=== PATIENT | female | born 1940 | race Caucasian/White ===

== ENCOUNTER 2017-02-13 09:37 | Observation (INO) | payer OTHER, MEDICAID ==
[2017-02-13] MEDS ORDERED: NS 1,000 ML IV ONE ×2 (09:43→10:43)
--- NOTE | 2017-02-13 09:53 | EDPHY ---
H & P Stated Complaint: I am afraid I might be septic Time Seen by Provider: 02/13/17 09:48 HPI/ROS: HPI: 76-year-old female presents to emergency department with chief concern "I am afraid I might be septic". She called [address] [facility] today because she was afraid she may developed sepsis from UTI. In rehab at [facility] and is being treated currently for UTI. States she has not responded to the amoxicillin and had pyuria on straight cath yesterday. Was treated with a g of IM Rocephin. Denies fever, chills, myalgias, URI symptoms, shortness of breath , chest pain, abdominal pain, nausea, vomiting. Has no history of sepsis. Has a history of chronic UTIs. ROS:10 point review of systems is negative other than as stated in HPI Source: Patient, long term records Exam Limitations: No limitations - Medical/Surgical History Other PMH: Multiple myeloma not having achieved remission, chronic kidney disease stage 3, acute respiratory failure with hypoxia, cerebral infarction, chronic pain syndrome, hypothyroidism, hypertension, weakness, heart disease, back pain, dysuria, cognitive communication deficit - Family History Significant Family History: No pertinent family hx - Social History Smoking Status: Never smoked Alcohol Use: Rarely Drug Use: None Additional Social History: Daughter lives in [place] Daughter currently in [place] for checkup for breast cancer Patient from [place] - Physical Exam Exam: Vital signs stable, reviewed by me General: Awake, alert, calm, cooperative. No acute distress. Head: Normalocephalic. Atraumatic. EENT: PERRLA. EOMI. No pallor or injection. Anicteric. No nystagmus. No injection. Neck: Supple, nontender. No lymphadenopathy. Full range of motion. No meningismus. Respiratory: Breathing unlabored. Breath sounds equal bilaterally and clear to auscultation. No adventitious sounds. CV: Chest nontender, atraumatic. Heart rate regular. No murmur, distal pulses 2+ bilaterally. Brisk cap refill all extremities. GI: Abdomen soft, nontender. Bowel sounds normoactive and positive x4 quadrants. : No suprapubic tenderness. No CVA or flank tenderness. Neuro: Alert. Oriented x 2. Speech clear. Nonfocal cranial nerves throughout. Sensation intact all extremities. Strength 4+ right upper extremity , 5+ left upper extremity, bilateral lower extremities. Skin: Skin warm, dry, intact. Skin turgor normal. Extremities: Full range of motion in all 4 extremities. Constitutional: Initial Vital Signs Temperature (C) 36.8 C 02/13/17 09:38 Heart Rate 90 02/13/17 09:38 Respiratory Rate 14 02/13/17 09:38 Blood Pressure 135/81 H 02/13/17 09:38 O2 Sat (%) 96 02/13/17 09:38 O2 Delivery Mode Nasal Cannula O2 (L/minute) 2 Allergies/Adverse Reactions: codeine Allergy (Verified 02/13/17 12:09) metoclopramide Allergy (Verified 02/13/17 12:09) Sulfa (Sulfonamide Antibiotics) Allergy (Verified 02/13/17 10:37) Home Medications: Medication Instructions Recorded Acetaminophen [Tylenol ES 500 mg 1,000 mg PO TID 02/13/17 (*)] Allopurinol [Allopurinol 300 MG 300 mg PO DAILY 02/13/17 (RX)] Anastrozole [Arimidex 1 mg (*)] 1 mg PO DAILY 02/13/17 Aspirin [Aspirin 81mg (*)] 81 mg PO DAILY 02/13/17 Atorvastatin Calcium [Lipitor 40 40 mg PO HS 02/13/17 mg (*)] Carvedilol [Coreg (*)] 3.125 mg PO BIDMEAL 02/13/17 Clopidogrel Bisulfate [Plavix (*)] 75 mg PO DAILY 02/13/17 Cyanocobalamin [Vitamin B12 (*)] 1,000 mcg PO DAILY 02/13/17 Herbals/Supplements -Info Only 1 each PO DAILY 02/13/17 Isosorbide Mononitrate [Imdur 30 30 mg PO DAILY 02/13/17 mg (*)] Levothyroxine [Synthroid 75 mcg 75 mcg PO DAILY06 02/13/17 (*)] Lidocaine 5% [Lidoderm 5% Patch 1 each TD DAILY 02/13/17 (*)] Lisinopril [Zestril 10 mg (*)] 10 mg PO DAILY 02/13/17 Melatonin [Melatonin 3 MG (*)] 3 mg PO HS PRN 02/13/17 Multivitamins [Multivitamin (*)] 1 each PO DAILY 02/13/17 [place]-3 Fatty Acids [Fish Oil 1000 1,000 mg PO DAILY 02/13/17 mg (*)] Tamsulosin HCl [Flomax 0.4 MG (*)] 0.8 mg PO DAILY 02/13/17 Venlafaxine Xr [Effexor Xr 75MG 75 mg PO DAILY 02/13/17 (*)] amLODIPine BESYLATE [Norvasc 10 mg 10 mg PO DAILY 02/13/17 (*)] clonazePAM [Klonopin (*)] 0.5 mg PO DAILY PRN 02/13/17 tiZANidine HCL [Zanaflex 2MG (*)] 2 mg PO Q8HRS PRN 02/13/17 traMADol [Ultram 50 mg (*)] 50 mg PO Q8HRS PRN 02/13/17 Medical Decision Making ED Course/Re-evaluation: 76-year-old female brought into ED by EMS having called [address] [facility] with chief concern "I am afraid of becoming septic". According to staff at [facility], treated for 1 UTI, resolved, and developed a 2nd UTI over the past 2 days. Patient reports pyuria yesterday on straight cath. Was given a g of Rocephin. In ED today white count within normal. Vitals are stable. BUN 27, creatinine 1.4. Lactic acid 2.3. Patient given 2 L normal saline. Repeating a 2nd lactic acid. Patient will be admitted to hospitalist service. Report given to Ericka Neal NP. Differential Diagnosis: Differential diagnosis includes but is not limited to UTI, sepsis, abscess - Data Points Laboratory Results: Laboratory Results 02/13/17 10:09 02/13/17 10:09 02/13/17 02/13/17 02/13/17 10:52 10:25 10:10 WBC RBC Hgb Hct MCV MCH MCHC RDW Plt Count MPV Neut % (Auto) Lymph % (Auto) [place] % (Auto) Eos % (Auto) Baso % (Auto) Nucleat RBC Rel Count Absolute Neuts (auto) Absolute Lymphs (auto) Absolute Monos (auto) Absolute Eos (auto) Absolute Basos (auto) Absolute Nucleated RBC Immature Gran % Immature Gran # PT 13.0 SEC SEC (12.0-15.0) INR 0.99 (0.83-1.16) APTT 25.8 SEC SEC (23.0-38.0) VBG Lactic Acid 1.8 mmol/L D mmol/L (0.7-2.1) Sodium Potassium Chloride Carbon Dioxide Anion Gap BUN Creatinine Estimated GFR Glucose Calcium Total Bilirubin Conjugated Bilirubin Unconjugated Bilirubin AST ALT Alkaline Phosphatase Total Protein Albumin Urine Color YELLOW Urine Appearance TURBID Urine pH 5.0 (5.0-7.5) Ur Specific [place] 1.012 (1.002-1.030) Urine Protein 2+ H (NEGATIVE) Urine Ketones NEGATIVE (NEGATIVE) Urine Blood 1+ H (NEGATIVE) Urine Nitrate NEGATIVE (NEGATIVE) Urine Bilirubin NEGATIVE (NEGATIVE) Urine Urobilinogen NEGATIVE EU EU (0.2-1.0) Ur Leukocyte Esterase 2+ H (NEGATIVE) Urine RBC NONE SEEN /hpf /hpf (0-3) Urine WBC 50-182 /hpf H /hpf (0-3) Ur Epithelial Cells TRACE /lpf /lpf (NONE-1+) Urine Glucose NEGATIVE (NEGATIVE) 02/13/17 02/13/17 02/13/17 10:09 10:09 10:09 WBC 9.28 10^3/uL 10^3/uL (3.80-9.50) RBC 3.87 10^6/uL L 10^6/uL (4.18-5.33) Hgb 11.4 g/dL L g/dL (12.6-16.3) Hct 35.8 % L % (38.0-47.0) MCV 92.5 fL fL (81.5-99.8) MCH 29.5 pg pg (27.9-34.1) MCHC 31.8 g/dL L g/dL (32.4-36.7) RDW 17.5 % H % (11.5-15.2) Plt Count 275 10^3/uL 10^3/uL (150-400) MPV 9.9 fL fL (8.7-11.7) Neut % (Auto) 80.0 % H % (39.3-74.2) Lymph % (Auto) 11.6 % L % (15.0-45.0) [place] % (Auto) 6.7 % % (4.5-13.0) Eos % (Auto) 0.9 % % (0.6-7.6) Baso % (Auto) 0.2 % L % (0.3-1.7) Nucleat RBC Rel Count 0.0 % % (0.0-0.2) Absolute Neuts (auto) 7.42 10^3/uL H 10^3/uL (1.70-6.50) Absolute Lymphs (auto) 1.08 10^3/uL 10^3/uL (1.00-3.00) Absolute Monos (auto) 0.62 10^3/uL 10^3/uL (0.30-0.80) Absolute Eos (auto) 0.08 10^3/uL 10^3/uL (0.03-0.40) Absolute Basos (auto) 0.02 10^3/uL 10^3/uL (0.02-0.10) Absolute Nucleated RBC 0.00 10^3/uL 10^3/uL (0-0.01) Immature Gran % 0.6 % % (0.0-1.1) Immature Gran # 0.06 10^3/uL 10^3/uL (0.00-0.10) PT INR APTT VBG Lactic Acid Sodium 140 mEq/L mEq/L (134-144) Potassium 4.7 mEq/L mEq/L (3.5-5.2) Chloride 105 mEq/L mEq/L (97-110) Carbon Dioxide 24 mEq/l mEq/l (22-31) Anion Gap 11 mEq/L mEq/L (8-16) BUN 27 mg/dL H mg/dL (7-23) Creatinine 1.4 mg/dL H mg/dL (0.6-1.0) Estimated GFR 36 Glucose 140 mg/dL H mg/dL (70-100) Calcium 10.3 mg/dL mg/dL (8.5-10.4) Total Bilirubin 0.6 mg/dL mg/dL (0.1-1.4) Conjugated Bilirubin 0.4 mg/dL mg/dL (0.0-0.5) Unconjugated Bilirubin 0.2 mg/dL mg/dL (0.0-1.1) AST 31 IU/L IU/L (14-46) ALT 39 IU/L IU/L (9-52) Alkaline Phosphatase 143 IU/L H IU/L (38-126) Total Protein 6.6 g/dL g/dL (6.3-8.2) Albumin 3.7 g/dL g/dL (3.5-5.0) Urine Color Urine Appearance Urine pH Ur Specific [place] Urine Protein Urine Ketones Urine Blood Urine Nitrate Urine Bilirubin Urine Urobilinogen Ur Leukocyte Esterase Urine RBC Urine WBC Ur Epithelial Cells Urine Glucose 02/13/17 10:09 WBC RBC Hgb Hct MCV MCH MCHC RDW Plt Count MPV Neut % (Auto) Lymph % (Auto) [place] % (Auto) Eos % (Auto) Baso % (Auto) Nucleat RBC Rel Count Absolute Neuts (auto) Absolute Lymphs (auto) Absolute Monos (auto) Absolute Eos (auto) Absolute Basos (auto) Absolute Nucleated RBC Immature Gran % Immature Gran # PT INR APTT VBG Lactic Acid 2.3 mmol/L H mmol/L (0.7-2.1) Sodium Potassium Chloride Carbon Dioxide Anion Gap BUN Creatinine Estimated GFR Glucose Calcium Total Bilirubin Conjugated Bilirubin Unconjugated Bilirubin AST ALT Alkaline Phosphatase Total Protein Albumin Urine Color Urine Appearance Urine pH Ur Specific [place] Urine Protein Urine Ketones Urine Blood Urine Nitrate Urine Bilirubin Urine Urobilinogen Ur Leukocyte Esterase Urine RBC Urine WBC Ur Epithelial Cells Urine Glucose Medications Given: Discontinued Medications Sodium Chloride (Ns) 1,000 mls @ 0 mls/hr IV ONCE ONE PRN Reason: Wide Open Stop: 02/13/17 09:44 Last Admin: 02/13/17 10:39 Dose: 1,000 mls Ceftriaxone Sodium/Dextrose (Rocephin 1 Gm (Premix)) 50 mls @ 100 mls/hr IV EDNOW ONE PRN Reason: Protocol Stop: 02/13/17 10:51 Last Admin: 02/13/17 10:52 Dose: 50 mls Sodium Chloride (Ns) 1,000 mls @ 0 mls/hr IV ONCE ONE PRN Reason: Wide Open Stop: 02/13/17 10:44 Last Admin: 02/13/17 10:53 Dose: 1,000 mls Departure - Departure Disposition: [facility] Acute Clinical Impression: UTI (urinary tract infection)
[2017-02-13 10:23] LABS: % IMMATURE GRANULYOCYTES 0.6 % (0.0-1.1); ABSOLUTE IMMATURE GRANULOCYTES 0.06 10^3/uL (0.00-0.10); ADD DIFF? NO; ADD MORPH? NO; ADD SCAN? NO; ATYPICAL LYMPHOCYTE FLAG 0 (0-99); FRAGMENT RBC FLAG 0 (0-99); HEMATOCRIT 35.8 % (38.0-47.0); HEMOGLOBIN 11.4 g/dL (12.6-16.3); LEFT SHIFT FLG 10 (0-99); LIPEMIA HEMOLYSIS FLAG 80 (0-99); MEAN CELL HEMOGLOBIN 29.5 pg (27.9-34.1); MEAN CELL HEMOGLOBIN CONCENTR. 31.8 g/dL (32.4-36.7); MEAN CELL VOLUME 92.5 fL (81.5-99.8); MEAN PLATELET VOLUME 9.9 fL (8.7-11.7); PLATELET CLUMPS FLAG 0 (0-99); PLATELET COUNT 275 10^3/uL (150-400); RED BLOOD CELL COUNT 3.87 10^6/uL (4.18-5.33); RED CELL DISTRIBUTION WIDTH 17.5 % (11.5-15.2)
[2017-02-13 10:39] LABS: ANION GAP 11 mEq/L (8-16); CALCIUM 10.3 mg/dL (8.5-10.4); CARBON DIOXIDE 24 mEq/l (22-31); CHLORIDE 105 mEq/L (97-110); CREATININE 1.4 mg/dL (0.6-1.0); GLOMERULAR FILTRATION RATE 36; GLUCOSE 140 mg/dL (70-100); POTASSIUM 4.7 mEq/L (3.5-5.2); SODIUM 140 mEq/L (134-144)
[2017-02-13 10:40] LABS: COLOR YELLOW; LEUKOCYTE ESTERASE,URINE 2+ (NEGATIVE); NITRITE,URINE NEGATIVE (NEGATIVE)
[2017-02-13 10:48] LABS: INR 0.99 (0.83-1.16)
[2017-02-13 10:49] LABS: APTT 25.8 SEC (23.0-38.0)
[2017-02-13 10:55] LABS: ALANINE AMINOTRANSFERASE 39 IU/L (9-52); ALBUMIN 3.7 g/dL (3.5-5.0); ALKALINE PHOSPHATASE 143 IU/L (38-126); ASPARTATE AMINOTRANSFERASE 31 IU/L (14-46); BILIRUBIN,TOTAL 0.6 mg/dL (0.1-1.4); BILIRUBIN-CONJUGATED 0.4 mg/dL (0.0-0.5); BILIRUBIN-UNCONJUGATED 0.2 mg/dL (0.0-1.1); TOTAL PROTEIN 6.6 g/dL (6.3-8.2)
[2017-02-13 10:55] LABS: WBC,URINE 50-182 /hpf (0-3)
[2017-02-13 11:07] LABS: RBC,URINE NONE SEEN /hpf (0-3)
[2017-02-13] MEDS ORDERED: tiZANidine HCL 2 MG TAB PO PRN (13:56)
[2017-02-13] MEDS ORDERED: clonazePAM 0.5 MG TAB PO PRN (13:56)
[2017-02-13] MEDS ORDERED: MELATONIN 3 MG TAB PO PRN (13:56)
[2017-02-13] MEDS ORDERED: ONDANSETRON 4 MG/2 ML VIAL IVP PRN (15:06)
[2017-02-13] MEDS: traMADol 50 MG TAB PO PRN (16:15)
--- NOTE | 2017-02-13 16:15 | GHP ---
[f rep st] HISTORY AND PHYSICAL DATE OF ADMISSION: 02/13/2017 CHIEF COMPLAINT: Dysuria. HISTORY: The patient is a 76-year-old female who is currently at [facility], having been moved from [place] by her daughter. She has a history of recurrent UTIs. A few days ago she developed burni ng when she urinates and a fever up to 101. Urinalysis at [facility] was positive for UTI, and she was given IM Rocephin. Urine culture has come back, and per patient report, organism was sensitive to Rocephin. She is no longer febrile, and her urine symptoms have improved. Patient comes to the ER; however, because she called 911 from her room at [facility] concerned that she was developing se psis. She is very concerned regarding her weakened immune system, status post stem cell transplant for multiple myeloma. She is a retired nurse. She was previously on Macrobid for UTI prevention; h owever, with her chronic creatinine elevation it was recently discontinued. She no longer has the b urning with urination and fever, and she is actually improving since Rocephin was started. PAST MEDICAL HISTORY: 1. Multiple myeloma, status post stem cell transplant and whole-body radiation, currently in [facility]. She has not reestablished Oncology care here in [place]. 2. Chronic kidney disease. She reports her last creatinine was 1.8. 3. History of stroke with right-sided weakness. 4. Chronic low back pain. 5. Osteoporosis with compression fracture, status post kyphoplasty. 6. Spinal stenosis. 7. Hypertension. 8. Elevated uric acid. 9. Breast cancer. MEDICATIONS: Please see computer record for full detailed list. ALLERGIES: Sulfa. SOCIAL HISTORY: No smoking. Occasional alcohol. She is a retired nurse. She has been in [place] from [place] since when she was brought here by her daughter due to increasing care need s in [place]. Her daughter is currently in [place] getting treatment for her own breast cancer. The patient is currently residing at [facility]. REVIEW OF SYSTEMS: Complete review of systems obtained. Review of systems is negative on constitut ional, HEENT, GI, pulmonary, cardiovascular, , hematology, skin, muscular, endocrine, psych except for positives as in HPI. FAMILY HISTORY: Reviewed. Noncontributory to presenting complaint. PHYSICAL EXAMINATION: GENERAL: Well-developed, well-nourished female, in no acute distress. VITAL SIGNS: Temperature is 96.5, pulse 69, blood pressure 121/59, saturating 97% on 2 L. EYE: Normal conjunctiva. Pupils react to light. ENT: Normal ears and nose. Hearing intact. Normal teeth. O ropharynx moist. NECK: Trachea midline. No thyromegaly. CHEST: Normal. RESPIRATORY: Lungs are clear to auscultation bilaterally. CARDIOVASCULAR: Regular rhythm. No murmur. No lower extremit y edema. ABDOMEN: Soft, nontender. No hepatosplenomegaly. SKIN: Warm, dry, and intact. No rash . MUSCULOSKELETAL: No cyanosis or clubbing. Strength 5/5 in the upper and lower extremities. CARLOS ROLOGIC: Cranial nerves intact. Normal sensation to light touch. PSYCH: Alert and oriented x3. Normal mood and affect. Normal judgment, insight and normal memory. LABORATORY DATA: White count 9.28, hematocrit 35.8, platelets 275. Sodium 140, potassium 4.7, chlo ride 105, bicarb 24, BUN 27, creatinine 1.4, glucose 140. LFTs are negative. INR is 0.9. Lactic a landon is 2.3. ASSESSMENT/PLAN: 1. Urinary tract infection. We will contact [facility] and obtain culture which has resulted from 2 days ago. Per patient report, organism was sensitive to Rocephin, which she has been on intramusc ularly at [facility]. It does appear she is improving. Will continue Rocephin. Will check a renal ultrasound. 2. Lactate elevation. Otherwise she does not have any signs and symptoms of sepsis at this time, a lthough it sounds like she may have had them 2 days ago. She may have a little residual hyponatremi a. She will be hydrated with IV fluid and follow lactate. 3. Multiple myeloma, status post stem cell treatment. Currently in remission. She wishes to estab [facility] Oncology care which can be done as an outpatient unless something more acute arises. We will request old records from [place] for further details. 4. Breast cancer. Continue Arimidex. 5. Chronic kidney disease. She is currently better than baseline. CODE STATUS: Full. ADMISSION STATUS: Will admit to observation as she is already improving and may be able to return t o [facility] in the morning. DVT PROPHYLAXIS: She is high risk. Will prescribe subcu Lovenox. /[id number]/MODL
[2017-02-13] MEDS: CARVEDILOL 3.125 MG TAB PO SCH (17:51)
[2017-02-13] MEDS: ACETAMINOPHEN 500 MG TAB PO SCH ×2 (17:51→20:46)
[2017-02-13] MEDS ORDERED: ATORVASTATIN CALCIUM 40 MG TAB PO SCH (21:00)
[2017-02-13] MEDS ORDERED: PATCH REMOVAL 1 EA PATCH TD SCH (21:00)
[2017-02-14] MEDS: traMADol 50 MG TAB PO PRN ×2 (04:20→14:57)
[2017-02-14 04:28] LABS: % IMMATURE GRANULYOCYTES 0.6 % (0.0-1.1); ABSOLUTE IMMATURE GRANULOCYTES 0.05 10^3/uL (0.00-0.10); ADD DIFF? NO; ADD MORPH? NO; ADD SCAN? NO; ATYPICAL LYMPHOCYTE FLAG 0 (0-99); FRAGMENT RBC FLAG 0 (0-99); HEMATOCRIT 29.1 % (38.0-47.0); HEMOGLOBIN 9.4 g/dL (12.6-16.3); LEFT SHIFT FLG 10 (0-99); LIPEMIA HEMOLYSIS FLAG 80 (0-99); MEAN CELL HEMOGLOBIN 29.6 pg (27.9-34.1); MEAN CELL HEMOGLOBIN CONCENTR. 32.3 g/dL (32.4-36.7); MEAN CELL VOLUME 91.5 fL (81.5-99.8); MEAN PLATELET VOLUME 9.7 fL (8.7-11.7); PLATELET CLUMPS FLAG 10 (0-99); PLATELET COUNT 221 10^3/uL (150-400); RED BLOOD CELL COUNT 3.18 10^6/uL (4.18-5.33); RED CELL DISTRIBUTION WIDTH 17.6 % (11.5-15.2)
[2017-02-14 04:40] LABS: ANION GAP 3 mEq/L (8-16); CALCIUM 9.2 mg/dL (8.5-10.4); CARBON DIOXIDE 23 mEq/l (22-31); CHLORIDE 111 mEq/L (97-110); CREATININE 1.2 mg/dL (0.6-1.0); GLOMERULAR FILTRATION RATE 44; GLUCOSE 90 mg/dL (70-100); POTASSIUM 4.5 mEq/L (3.5-5.2); SODIUM 137 mEq/L (134-144)
[2017-02-14] MEDS ORDERED: LEVOTHYROXINE 75 MCG TAB PO SCH (06:00)
[2017-02-14] MEDS: CARVEDILOL 3.125 MG TAB PO SCH (08:16)
[2017-02-14] MEDS: ACETAMINOPHEN 500 MG TAB PO SCH ×2 (08:17→14:57)
[2017-02-14] MEDS ORDERED: LISINOPRIL 10 MG TAB PO SCH (09:00)
[2017-02-14] MEDS ORDERED: ANASTROZOLE 1 MG TAB PO SCH (09:00)
[2017-02-14] MEDS ORDERED: LIDOCAINE 5% 1 EA PATCH TD SCH (09:00)
[2017-02-14] MEDS ORDERED: TAMSULOSIN HCL 0.4 MG CAP PO SCH (09:00)
[2017-02-14] MEDS ORDERED: ENOXAPARIN 40 MG/0.4 ML SYR SC SCH (09:00)
[2017-02-14] MEDS ORDERED: ASPIRIN 81 MG CHEWABLE TAB PO SCH (09:00)
[2017-02-14] MEDS ORDERED: CYANO/VITAMIN B12 1000 MCG TAB PO SCH (09:00)
[2017-02-14] MEDS ORDERED: ALLOPURINOL 300 MG TAB PO SCH (09:00)
[2017-02-14] MEDS ORDERED: VENLAFAXINE XR 75 MG CAP PO SCH (09:00)
[2017-02-14] MEDS ORDERED: ISOSORBIDE MONONITRATE 30 MG TAB.SR PO SCH (09:00)
[2017-02-14] MEDS ORDERED: CLOPIDOGREL BISULFATE 75 MG TAB PO SCH (09:00)
--- NOTE | 2017-02-14 11:03 | PDIAF ---
- Diagnosis Diagnosis: UTI Code Status: Full Code - Medication Management Discharge Medications: Medications to Continue on Transfer Acetaminophen [Tylenol ES 500 mg (*)] 1,000 mg PO TID 02/13/17 [Last Taken Unknown] Allopurinol [Allopurinol 300 MG (RX)] 300 mg PO DAILY 02/13/17 [Last Taken Unknown] Anastrozole [Arimidex 1 mg (*)] 1 mg PO DAILY 02/13/17 [Last Taken Unknown] Aspirin [Aspirin 81mg (*)] 81 mg PO DAILY 02/13/17 [Last Taken Unknown] Atorvastatin Calcium [Lipitor 40 mg (*)] 40 mg PO HS 02/13/17 [Last Taken Unknown] Carvedilol [Coreg (*)] 3.125 mg PO BIDMEAL 02/13/17 [Last Taken Unknown] Clopidogrel Bisulfate [Plavix (*)] 75 mg PO DAILY 02/13/17 [Last Taken Unknown] Cyanocobalamin [Vitamin B12 (*)] 1,000 mcg PO DAILY 02/13/17 [Last Taken Unknown ] Herbals/Supplements -Info Only 1 each PO DAILY 02/13/17 [Last Taken Unknown] Isosorbide Mononitrate [Imdur 30 mg (*)] 30 mg PO DAILY 02/13/17 [Last Taken Unknown] Levothyroxine [Synthroid 75 mcg (*)] 75 mcg PO DAILY06 02/13/17 [Last Taken Unknown] Lidocaine 5% [Lidoderm 5% Patch (*)] 1 each TD DAILY 02/13/17 [Last Taken Unknown] Lisinopril [Zestril 10 mg (*)] 10 mg PO DAILY 02/13/17 [Last Taken Unknown] Melatonin [Melatonin 3 MG (*)] 3 mg PO HS PRN 02/13/17 [Last Taken Unknown] Multivitamins [Multivitamin (*)] 1 each PO DAILY 02/13/17 [Last Taken Unknown] [place]-3 Fatty Acids [Fish Oil 1000 mg (*)] 1,000 mg PO DAILY 02/13/17 [Last Taken Unknown] Tamsulosin HCl [Flomax 0.4 MG (*)] 0.8 mg PO DAILY 02/13/17 [Last Taken Unknown] Venlafaxine Xr [Effexor Xr 75MG (*)] 75 mg PO DAILY 02/13/17 [Last Taken Unknown ] amLODIPine BESYLATE [Norvasc 10 mg (*)] 10 mg PO DAILY 02/13/17 [Last Taken Unknown] clonazePAM [Klonopin (*)] 0.5 mg PO DAILY PRN 02/13/17 [Last Taken Unknown] tiZANidine HCL [Zanaflex 2MG (*)] 2 mg PO Q8HRS PRN 02/13/17 [Last Taken Unknown ] traMADol [Ultram 50 mg (*)] 50 mg PO Q8HRS PRN 02/13/17 [Last Taken Unknown] Ciprofloxacin [Cipro] 500 mg PO BID #14 tab 02/14/17 [Last Taken Unknown] Carrot Grader Inspector Antibiotic Stop Date: 02/20/17 Discharge Medications: Refer to the Discharge Home Medication list for PRN reason. - Orders Services needed: Physical Therapy, Occupational Therapy Diet Recommendation: no restrictions on diet - Follow Up Care Current Providers and Referrals: Patient,NotPresent [Primary Care Provider] - As per Instructions Shemar Grace MD [Medical Doctor] -
--- NOTE | 2017-02-14 12:37 | GCON ---
[f rep st] CONSULTATION INPATIENT ONCOLOGY CONSULTATION DATE OF CONSULTATION: 02/14/2017 REFERRING PHYSICIAN: Jolly Yang MD REASON FOR CONSULTATION: Establish care for history of multiple myeloma. HISTORY OF PRESENT ILLNESS: The patient is a 76-year-old woman with a longstanding history of multiple myeloma which is currently in remission. She recently moved to [place] to live with her daughter. She is actually currently at [facility] and was admitted with a urinary tract infection. Cultures showed a pansensitive Klebsiella, and she will likely be discharged today on oral ciprofloxacin. Her myeloma history dates back to 1990. Her care to date has been given by Dr. Hipolito Lindsey. She was treated with tandem autologous stem cell transplant in 1991 and 1992, which included total body irradiation conditioning. She also had thalidomide post transplant which caused some peripheral neuropathy. She says that she has been in remission since then and has not been on any therapy. She does not know if she ever received a bisphosphonate. She did have some bony lesions and has had multiple kyphoplasties. She has chronic low back pain and is not able to stand or sit for long periods of time. She is seeing a pain specialist in [place]. This is probably her most significant medical problem right now, and is what resulted in her moving to [place] because her was no longer able to care for her. PAST MEDICAL HISTORY: 1. Myeloma, as described above. 2. Vertebral body lesions from myeloma, status kyphoplasty. 3. Coronary artery disease, status post stent x3. 4. Cholecystectomy. 5. Hysterectomy. 6. Hypertension. CURRENT MEDICATIONS: Include allopurinol, Arimidex, aspirin, Lipitor, Coreg, ceftriaxone, Plavix, Lovenox, Imdur, Synthroid, Zestril, Zofran, Flomax, Effexor , and vitamin B12. ALLERGIES: Sulfa drugs and codeine. FAMILY HISTORY: Noncontributory. SOCIAL HISTORY: She is nonsmoker and does not drink alcohol. Currently living at [facility] but is likely to move into her daughter's house in [place] when her daughter returns from a trip out of town. REVIEW OF SYSTEMS: Aside from pertinent positives in the HPI, a 14-point review of systems was negative. EXAMINATION: VITAL SIGNS: Temperature is 36.6, blood pressure 144/70, heart rate 69, oxygen saturation 94% on 2 L. GENERAL: A [id number] woman though in no acute distress. HEENT: Sclerae anicteric. Oropharynx is clear. NECK: Supple without lymphadenopathy. LUNGS: Clear to auscultation bilaterally. CARDIAC: Regular rate and rhythm. No murmurs, gallops, or rubs. ABDOMEN: Normal bowel sounds. Nontender. EXTREMITIES: Without edema. 2+ pulses. SKIN: She had a large ecchymosis and hematoma on her left shoulder after a fall. No other stigmata of bleeding. NEUROLOGIC: Alert and oriented x3. LABORATORY DATA: Sodium 137, potassium 4.5, chloride 111, bicarb 23, BUN 25, creatinine 1.2. Liver function tests normal. White cells 8.34, hemoglobin 9.4, platelets 221. IMPRESSION: 1. Multiple myeloma, thought to be in remission, with no recent therapy. 2. Chronic low back pain, likely due to bony disease from myeloma. 3. Urinary tract infection. 4. Normocytic anemia. I ordered some myeloma labs today, including an SPEP and free light chains. I will check her immunoglobulin levels as a measure of immune function, which may still be impaired even though this is many years after stem cell transplant. I will also check iron stores and B12 level to determine if there may be other causes for her anemia. I would like to see her in my clinic several weeks after discharge so that we can continue monitoring her myeloma. I do not believe any treatment would be indicated right now unless there is evidence that it is progressive. She has not had any labs checked in almost a year, so we will have to see what those show. I will forward those results to Dr. Lindsey's clinic at [facility]. I thank you for this consultation. It was a pleasure to meet this patient, and I appreciate the opportunity to be involved in her care. I look forward to seeing her regularly in my outpatient clinic. /[id number]/MODL MTDD
[2017-02-14 12:52] LABS: % SATURATION 21 % (20-55); TOTAL IRON BINDING CAPACITY 232 ug/dL (260-490)
[2017-02-14 13:31] VITALS: BP 115/69; PULSE 76; RESP 16; TEMP 98.4; O2SAT 90
[2017-02-14 14:47] LABS: FERRITIN - BCH 39.9 ng/mL (6.2-264.0)
--- NOTE | 2017-02-14 17:52 | GDS ---
[f rep st] DISCHARGE SUMMARY DISCHARGE DIAGNOSES: 1. Klebsiella urinary tract infection. 2. Dehydration with lactic acid elevation. 3. Multiple myeloma, status post previous stem-cell treatment and whole-body radiation. 4. Breast cancer. 5. Chronic kidney disease. 6. Coronary artery disease, status post stents. 7. Pathologic compression fracture, status post kyphoplasty now with chronic low back pain. 8. Peripheral neuropathy secondary to chemotherapy. HISTORY: The patient is a 76-year-old female, recently relocating here from [place], who is in [facility] until her daughter returns to the [facility] so she may live with her. She has a history of multiple myeloma, which is currently in remission, although has required extensive erlin tment in the past. She is very concerned regarding her ongoing immune function. She developed a UT I at [facility], was given IM Rocephin. Culture from [facility] was Klebsiella which was sensitive to the Rocephin. It is also sensitive to oral ciprofloxacin. She did not have any signs of sepsis on presentation. She rapidly improved. She can discharge back to [facility] with ciprofloxacin to complete her course of therapy. She has not yet established care in [place] for her multiple myeloma. She requested Oncology consu ltation and Dr. Grace saw her here in the hospital and initiated lab surveillance and will see he r as an outpatient. DISCHARGE MEDICATIONS: Please see computer record for full detailed list. New medications: Ciprof loxacin 500 mg p.o. b.i.d. for 7 days. ADDITIONAL DISCHARGE INSTRUCTIONS: Follow up with Dr. Grace for local oncology followup. Multip le laboratory studies were ordered here by Dr. Grace prior to discharge, and he will follow these up as an outpatient. Patient was seen and examined by me on day of discharge. /[id number]/MODL
[2017-02-15 13:40] LABS: IG KAPPA FREE LIGHT CHAIN 4.16 mg/dL; IG LAMBDA FREE LIGHT CHAIN 3.08 mg/dL; KAPPA/LAMBDA RATIO 1.35
== END 2017-02-14 15:17 ==
LOC: F3E 12:00
PROVIDERS: ADMIT Internal Medicine Pulmonary Disease; ATTEND Internal Medicine
DX: N39.0 Urinary tract infection, site not specified (principal); B96.1 Klebsiella pneumoniae [K. pneumoniae] as the cause of diseases classified elsewhere; C90.01 Multiple myeloma in remission; D64.9 Anemia, unspecified; I25.10 Atherosclerotic heart disease of native coronary artery without angina pectoris; G62.0 Drug-induced polyneuropathy; I10 Essential (primary) hypertension; E86.0 Dehydration; N18.9 Chronic kidney disease, unspecified; Z95.0 Presence of cardiac pacemaker
CPT/HCPCS: 76770; 97161; G0378; G8978; G8979; J0696; J1650; 82607-90; 82784-90; 86334-90; 96365

== ENCOUNTER 2017-04-24 14:57 | Observation (INO) | payer OTHER, MEDICARE, MEDICAID ==
--- NOTE | 2017-04-24 14:57 | EDPHY ---
H & P Constitutional: Initial Vital Signs Temperature (C) 36.2 C 04/24/17 15:09 Heart Rate 82 04/24/17 15:09 Respiratory Rate 20 04/24/17 15:09 Blood Pressure 69/45 L 04/24/17 15:09 O2 Sat (%) 98 04/24/17 15:09 O2 Delivery Mode Nasal Cannula O2 (L/minute) 4 Allergies/Adverse Reactions: codeine Allergy (Verified 02/13/17 12:09) metoclopramide Allergy (Verified 02/13/17 12:09) Sulfa (Sulfonamide Antibiotics) Allergy (Verified 02/13/17 10:37) iv iron Allergy (Uncoded 04/24/17 16:10) Home Medications: Medication Instructions Recorded Acetaminophen [Tylenol ES 500 mg 1,000 mg PO TID 02/13/17 (*)] Allopurinol [Allopurinol 300 MG 300 mg PO DAILY 02/13/17 (RX)] Anastrozole [Arimidex 1 mg (*)] 1 mg PO DAILY 02/13/17 Aspirin [Aspirin 81mg (*)] 81 mg PO DAILY 02/13/17 Atorvastatin Calcium [Lipitor 40 40 mg PO HS 02/13/17 mg (*)] Carvedilol [Coreg (*)] 3.125 mg PO BIDMEAL 02/13/17 Clopidogrel Bisulfate [Plavix (*)] 75 mg PO DAILY 02/13/17 Cyanocobalamin [Vitamin B12 (*)] 1,000 mcg PO DAILY 02/13/17 Herbals/Supplements -Info Only 1 each PO DAILY 02/13/17 Isosorbide Mononitrate [Imdur 30 30 mg PO DAILY 02/13/17 mg (*)] Levothyroxine [Synthroid 75 mcg 75 mcg PO DAILY06 02/13/17 (*)] Lidocaine 5% [Lidoderm 5% Patch 1 each TD DAILY 02/13/17 (*)] Lisinopril [Zestril 10 mg (*)] 10 mg PO DAILY 02/13/17 Melatonin [Melatonin 3 MG (*)] 3 mg PO HS PRN 02/13/17 Multivitamins [Multivitamin (*)] 1 each PO DAILY 02/13/17 [place]-3 Fatty Acids [Fish Oil 1000 1,000 mg PO DAILY 02/13/17 mg (*)] Tamsulosin HCl [Flomax 0.4 MG (*)] 0.8 mg PO DAILY 02/13/17 Venlafaxine Xr [Effexor Xr 75MG 75 mg PO DAILY 02/13/17 (*)] amLODIPine BESYLATE [Norvasc 10 mg 10 mg PO DAILY 02/13/17 (*)] clonazePAM [Klonopin (*)] 0.5 mg PO DAILY PRN 02/13/17 tiZANidine HCL [Zanaflex 2MG (*)] 2 mg PO Q8HRS PRN 02/13/17 traMADol [Ultram 50 mg (*)] 50 mg PO Q8HRS PRN 02/13/17 Ciprofloxacin [Cipro] 500 mg PO BID #14 tab 02/14/17 Medical Decision Making - Diagnostics Imaging: Discussed imaging studies w/ manager call Radiologist, I viewed and interpreted images myself ED Course/Re-evaluation: CHIEF COMPLAINT: Possible allergic reaction, AMS HISTORY OF PRESENT ILLNESS: The patient is a 76 y/o female arriving via EMS from the [facility] with possible allergic reaction and syncope related to a medication infusion this afternoon around 14:30, about 30 minutes prior to arrival. She has a history that includes multiple myeloma, stroke, breast cancer , kidney disease, and hypertension. EMS reports staff administered 125mg IV Solu -medrol, 100mg IV Solu-Cortef, and 25mg IV Benadryl due to an acute onset erythematous rash. She has been somnolent for EMS throughout their contact. She was initially hypoxemic, but this improved with O2 via nasal cannula. She is minimally responsive to pain upon my assessment and unable to contribute to history. Her daughter reports patient was acting normally prior to the infusion and is normally conversant at baseline. REVIEW OF SYSTEMS: Limited by patient condition. PHYSICAL EXAM: HR, BP 69/45, O2 Sat, RR. Temp noted General Appearance: Minimally responsive to pain, hypotensive, pale Head: Atraumatic without obvious injury Eyes: Pupils equal, round, reactive to light and accommodation, no trauma, no injection. Ears: Clear bilaterally, no perforation, normal landmarks Nose: Atraumatic, no rhinorrhea, clear. Throat: Mucus membranes moist. Neck: Atraumatic Respiratory: No retractions, no distress, no wheezes, and no accessory muscle use. Lungs are clear to auscultation bilaterally. Cardiovascular: Regular rate and rhythm, no murmurs, rubs, or gallops. Good capillary refill all extremities. Gastrointestinal: Abdomen is soft, non-distended, no masses, no rebound, no guarding, no peritoneal signs. Musculoskeletal: Normal passive ROM of all extremities, atraumatic. Neurological: Nonverbal, minimally responsive to painful stimuli Skin: No rashes, good turgor, no nodules on palpation. Ecchymosis to left shoulder. Past medical history: Multiple myeloma, chronic kidney disease, stroke with persisting right-sided weakness, chronic low back pain, osteoporosis with compression fracture, spinal stenosis, hypertension, elevated uric acid, breast cancer Past surgical history: kyphoplasty Family history: noncontributory Social history: Daughter at bedside. Receives care at [facility]. Oncologist: Dr. Grace DIAGNOSTICS/PROCEDURES/CRITICAL CARE TIME: The 12 lead EKG was interpreted by myself. Sinus mechanism rate 81, RBBB, LVH, no ischemic changes. See hard copy and/or "tracemaster" electronic copy for interpretation. Head CT: Echocardiogram: RBBB, no effusion, good wall movement. Critical care time spent by me, Dr. Brush, exclusively with this patient was 45 minutes, exclusive of PA time and exclusive of procedures. The organ system at risk was cardiovascular, neurologic and I gave IVF, allergic reaction medications, pressors, consulted with oncology, and continually reassessed to prevent worsening of the patients condition. DIFFERENTIAL DIAGNOSIS: The differential diagnosis for the patient's altered mental status included but was not limited to anaphylactoid reaction, hypoglycemia, infectious process, electrolyte abnormality, head injury, neurologic process, anemia, cardiac process, and intoxicants. MEDICAL DECISION MAKING: This is a chronically-ill 76 y/o female presenting with acute altered mentation and hypotension following an infusion at the cancer center about 30 minutes prior to arrival. EMS stated she had an erythematous rash that has resolved upon my assessment. Patient is nearly unresponsive upon assessment, but does withdraw from pain. She is hypotensive in the high 60s systolic and appears pale. I find no evidence of acute airway issues, but patient will possibly require pressors to maintain adequate blood pressure. Plan for IV, labs, EKG, and head CT to rule out acute causes of altered mentation apart from allergic reaction. Plan for standard allergic reaction medications as well. 1511: 0.3mg IM epinephrine ordered. 1517: BP 70/45, HR 80, skin color has improved, patient is starting to speak and respond to questions. 1520: BP 76/48. Pressure continues to improve during serial measurements. 1523: 125mg IV Solumedrol and 40mg IV Pepcid administered for possible allergic reaction. 1524: 69/53. 100mg IV Phenylephrine administered for hypotension. Echocardiogram ordered. Discussed recommendation for admission due to unstable vitals and unclear etiology for symptoms. 1534: Consulted with Dr. Grace, patient's oncologist. He confirms the patient received an iron infusion today for anemia when her symptoms began. Her symptoms are consistent with an anaphylactoid reaction. We will continue to rule out other causes with head CT, labs, and echo. 1536: Reassessed patient. Her BP has improved to 103/59. She is much more alert and has vomited once. 1553: Reassessed patient. Her BP is currently 85/56. She is resting comfortably. 1601: Reassessed patient. She is alert, oriented, and normally conversant. She agrees with plan for admission. 1634: Spoke with hospitalist service. Dr. Bello accepts admission. - Data Points Laboratory Results: Laboratory Results 04/24/17 15:18 04/24/17 15:18 04/24/17 04/24/17 04/24/17 15:18 15:18 15:18 WBC 8.77 10^3/uL 10^3/uL (3.80-9.50) RBC 5.30 10^6/uL 10^6/uL (4.18-5.33) Hgb 16.5 g/dL H g/dL (12.6-16.3) POC Hgb Hct 50.6 % H % (38.0-47.0) POC Hct MCV 95.5 fL fL (81.5-99.8) MCH 31.1 pg pg (27.9-34.1) MCHC 32.6 g/dL g/dL (32.4-36.7) RDW 20.0 % H % (11.5-15.2) Plt Count 285 10^3/uL 10^3/uL (150-400) MPV 10.7 fL fL (8.7-11.7) Neut % (Auto) Not Reported Lymph % (Auto) Not Reported [place] % (Auto) Not Reported Eos % (Auto) Not Reported Baso % (Auto) Not Reported Nucleat RBC Rel Count 0.7 % H % (0.0-0.2) Absolute Neuts (auto) Not Reported Absolute Lymphs (auto) Not Reported Absolute Monos (auto) Not Reported Absolute Eos (auto) Not Reported Absolute Basos (auto) Not Reported Absolute Nucleated RBC 0.06 10^3/uL H 10^3/uL (0-0.01) Immature Gran % Not Reported Immature Gran # Not Reported Platelet Estimate Pending PT 12.4 SEC SEC (12.0-15.0) INR 0.93 (0.83-1.16) APTT 20.0 SEC L SEC (23.0-38.0) POC Sodium Sodium 140 mEq/L mEq/L (134-144) POC Potassium Potassium 4.6 mEq/L mEq/L (3.5-5.2) POC Chloride Chloride 108 mEq/L mEq/L (97-110) Carbon Dioxide 18 mEq/l L mEq/l (22-31) Anion Gap 14 mEq/L mEq/L (8-16) POC BUN BUN 21 mg/dL mg/dL (7-23) Creatinine 1.7 mg/dL H mg/dL (0.6-1.0) POC Creatinine Estimated GFR 29 Glucose 114 mg/dL H mg/dL (70-100) POC Glucose Calcium 10.1 mg/dL mg/dL (8.5-10.4) Troponin I < 0.012 ng/mL ng/mL (0-0.034) 04/24/17 15:14 WBC RBC Hgb POC Hgb 19.0 gm/dL H gm/dL (12.6-16.3) Hct POC Hct 56 % H % (38-47) MCV MCH MCHC RDW Plt Count MPV Neut % (Auto) Lymph % (Auto) [place] % (Auto) Eos % (Auto) Baso % (Auto) Nucleat RBC Rel Count Absolute Neuts (auto) Absolute Lymphs (auto) Absolute Monos (auto) Absolute Eos (auto) Absolute Basos (auto) Absolute Nucleated RBC Immature Gran % Immature Gran # Platelet Estimate PT INR APTT POC Sodium 139 mEq/L mEq/L (134-144) Sodium POC Potassium 4.3 mEq/L mEq/L (3.3-5.0) Potassium POC Chloride 105 mEq/L mEq/L (97-110) Chloride Carbon Dioxide Anion Gap POC BUN 24 mg/dL H mg/dL (7-23) BUN Creatinine POC Creatinine 1.7 mg/dL H mg/dL (0.6-1.0) Estimated GFR Glucose POC Glucose 121 mg/dL H mg/dL (70-100) Calcium Troponin I Medications Given: Discontinued Medications Epinephrine HCl (Epinephrine) 0.3 mg IM EDNOW ONE Stop: 04/24/17 15:20 Last Admin: 04/24/17 15:27 Dose: 0.3 mg Famotidine (Pepcid) 40 mg IVP EDNOW ONE Stop: 04/24/17 15:20 Last Admin: 04/24/17 15:23 Dose: 40 mg Sodium Chloride (Ns) 1,000 mls @ 0 mls/hr IV ONCE ONE PRN Reason: Wide Open Stop: 04/24/17 15:56 Last Admin: 04/24/17 15:58 Dose: 1,000 mls Methylprednisolone Sodium Succinate (Solu-Medrol) 125 mg IVP EDNOW ONE Stop: 04/24/17 15:21 Last Admin: 04/24/17 15:26 Dose: 125 mg Ondansetron HCl (Zofran) 4 mg IVP EDNOW ONE Stop: 04/24/17 15:37 Last Admin: 04/24/17 15:47 Dose: 4 mg Point of Care Test Results: 04/24/17 15:14 POC Sodium 139 POC Potassium 4.3 POC Chloride 105 POC BUN 24 H POC Creatinine 1.7 H POC Glucose 121 H Departure - Departure Disposition: [facility] Inpatient Acute Clinical Impression: Anaphylactoid reaction Qualifiers: Encounter type: initial encounter Qualified Code(s): T78.2XXA - Anaphylactic shock, unspecified, initial encounter Hypotension Qualifiers: Hypotension type: other hypotension type Qualified Code(s): I95.89 - Other hypotension Condition: Fair Report Scribed for: Derek Brush Report Scribed by: Michelle Reilly Date of Report: 04/24/17 Time of Report: 15:15
[2017-04-24] MEDS ORDERED: FAMOTIDINE 20 MG/2 ML SDV IVP ONE (15:19)
[2017-04-24] MEDS ORDERED: methylPREDNISolone SOD SUCC 125 MG/2 ML VIAL IVP ONE (15:20)
[2017-04-24] MEDS ORDERED: PHENYLEPHRINE HCL 100 MCG/ML SYR ONE (15:25)
[2017-04-24 15:26] LABS: ABSOLUTE NRBC COUNT 0.06 10^3/uL (0-0.01); ADD DIFF? YES; ADD MORPH? NO; ATYPICAL LYMPHOCYTE FLAG 0 (0-99); FRAGMENT RBC FLAG 20 (0-99); HEMATOCRIT 50.6 % (38.0-47.0); HEMOGLOBIN 16.5 g/dL (12.6-16.3); LIPEMIA HEMOLYSIS FLAG 80 (0-99); MEAN CELL HEMOGLOBIN 31.1 pg (27.9-34.1); MEAN CELL HEMOGLOBIN CONCENTR. 32.6 g/dL (32.4-36.7); MEAN CELL VOLUME 95.5 fL (81.5-99.8); MEAN PLATELET VOLUME 10.7 fL (8.7-11.7); NRBC-AUTO% 0.7 % (0.0-0.2); PLATELET CLUMPS FLAG 0 (0-99); PLATELET COUNT 285 10^3/uL (150-400)
--- NOTE | 2017-04-24 15:28 | CPEKG ---
Heart Rate: 81 RR Interval: 741 P-R Interval: 164 QRSD Interval: 118 QT Interval: 436 QTC Interval: 506 P [place]: 53 QRS [place]: 49 T Wave [place]: 99 EKG Severity - ABNORMAL ECG - EKG Impression: SINUS RHYTHM EKG Impression: INCOMPLETE LEFT BUNDLE BRANCH BLOCK EKG Impression: PROBABLE LVH WITH SECONDARY REPOL ABNRM EKG Impression: ANTERIOR Q WAVES, POSSIBLY DUE TO LVH Electronically Signed By: Derek Brush 24-Apr-2017 23:29:16
[2017-04-24 15:29] LABS: LEFT SHIFT FLG 200 (0-99)
[2017-04-24 15:36] LABS: INR 0.93 (0.83-1.16); PROTIME(PATIENT) 12.4 SEC (12.0-15.0)
[2017-04-24] MEDS ORDERED: ONDANSETRON 4 MG/2 ML VIAL IVP ONE (15:36)
[2017-04-24 15:48] LABS: ANION GAP 14 mEq/L (8-16); CALCIUM 10.1 mg/dL (8.5-10.4); CARBON DIOXIDE 18 mEq/l (22-31); CHLORIDE 108 mEq/L (97-110); CREATININE 1.7 mg/dL (0.6-1.0); GLOMERULAR FILTRATION RATE 29; GLUCOSE 114 mg/dL (70-100); POTASSIUM 4.6 mEq/L (3.5-5.2); SODIUM 140 mEq/L (134-144)
[2017-04-24] MEDS ORDERED: NS 1,000 ML IV ONE (15:55)
[2017-04-24 15:58] LABS: TROPONIN I < 0.012 ng/mL (0-0.034)
[2017-04-24 16:11] LABS: ADD SCAN? NO
[2017-04-24 16:50] LABS: PLATELET ESTIMATE ADEQUATE (ADEQ)
--- NOTE | 2017-04-24 17:00 | ECHO ---
[id number] + + [address] : : [place] [address] : : [phone] + Adult Echocardiographic Report + ---+ :Name: PATRICIA MARTINOLorene Date: 04/24/2017 03:50 PM : : Hospital Admission Number: [id number] Location: 2: :: 1940 Gender: Female Height: 64 in : :Age: 76 yrs Race: WH Weight: 157 lb : :Reason For Study: Eval LV Fx : : BSA: 1.8 meters2 : :History: Anaphylactic shock, Hypotension : + ---+ MMode/2D Measurements \T\ Calculations IVSd: 1.1 cm LVIDd: 3.2 cm FS: 32.2 % Ao root diam: 3.1 cm LVPWd: 1.0 cm LVIDs: 2.2 cm EDV(Teich): 41.0 ml ACS: 1.5 cm ESV(Teich): 15.7 ml EF(Teich): 61.8 % Normal Measurement Values: + + :LVIDd (3.5-5.7cm) IVSd (0.6-1.1cm) LVPWd (0.6-1.1cm) Aortic Root (2.0-3.7cm)Left Atrium (1.5-4.0cm): :LV Vol(d) (76-115ml) LV Vol(s) (29-48ml) Ejec Fraction (50-65%)PV Jacob (0.6- 1.2m/s) TV Jacob (0.4-1.0m/s) : :MV E Jacob (0.8-1.0m/s)MV A Jacob (0.3-1.0m/s)LVOT Jacob (0.7-1.2m/s) Asc Ao Jacob ( 0.9-1.8m/s) : + + Doppler Measurements \T\ Calculations MV E max jacob: Ao V2 max: AI max jacob: LV V1 max: 47.9 cm/sec 140.0 cm/sec 324.0 cm/sec 94.8 cm/sec MV A max jacob: Ao max PG: AI max P.0 mmHg LV V1 max P.9 cm/sec 7.8 mmHg AI dec slope: 3.6 mmHg MV E/A: 1.0 129.0 cm/sec2 AI P1/2t: 735.6 msec PA V2 max: 107.0 cm/sec PA max P.6 mmHg Left Ventricle The left ventricle is normal in size. There is normal left ventricular wall thickness. The left ventricular ejection fraction is normal. There is Doppler evidence for diastolic dysfunction. Ejection Fraction = 62%. Septal motion is consistent with conduction abnormality. Right Ventricle The right ventricle is normal in size and function. Atria The left atrial size is normal. Right atrial size is normal. Mitral Valve The mitral valve is normal in structure and function. There is no evidence of mitral valve prolapse. There is no mitral valve stenosis. There is no mitral regurgitation noted. Tricuspid Valve Normal tricuspid valve. There is trace tricuspid regurgitation. Aortic Valve The aortic valve opens well. There is no aortic stenosis. Mild aortic regurgitation. Pulmonic Valve The pulmonic valve is normal in structure and function. There is no pulmonic valvular regurgitation. Great Vessels The aortic root is normal size. Pericardium/Pleural There is no pericardial effusion. Conclusion A complete two-dimensional transthoracic echocardiogram was performed (2D, M-mode, Doppler and color flow Doppler). The left ventricular ejection fraction is normal. Ejection Fraction = 62%. There is Doppler evidence for diastolic dysfunction. Septal motion is consistent with conduction abnormality. The mitral valve is normal in structure and function. Normal tricuspid valve There is trace tricuspid regurgitation. The aortic valve opens well. Mild aortic regurgitation. The aortic root is normal size. There is no pericardial effusion. Final Reading Physician: Joe Craig signed on 04/24/2017 04:59 PM Ordering Physician: Derek Brush Performed By: Aayush Rey, RDCS
[2017-04-24] MEDS ORDERED: NS BOLUS 500 ML (Wide open) IV ONE (18:00)
[2017-04-24] MEDS ORDERED: ALBUTEROL 3 ML DEYVIAL IH PRN (18:32)
[2017-04-24] MEDS ORDERED: NS 1,000 ML IV SCH (18:45)
--- NOTE | 2017-04-24 18:48 | PDGENHP ---
History and Physical - Chief Complaint Hypotension - History of Present Illness This is a 76 yo female who was receiving IV Iron infusion at the cancer center and appears to have had a reaction during which she was minimally responsive and was hypotensive. She received IVF, Solumedrol, Pepcid, Benadry and sent to the third floor. Upon leaving the ED, it was reported that her BP was much improved and she was essentially back to baseline. However, currently her BP is in the 80's systolic, but she is not symptomatic. She has a hx of HTN and is a number of medications which she took this morning. She has been feeling well leading up to this event. She denies CP, SOB, N/V, fever, new weakness, dizzyness, or other. She is at her baseline mentation and she is seen with her daughter at bedside. A NS bolus has been started per my orders. She is on supplemental O2 but at baseline. She denies any urinary sx's. Says she feels about normal. 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 social ETOH FmHx: reviewed, [place] History Information - Allergies/Home Medication List Allergies/Adverse Reactions: codeine Allergy (Verified 02/13/17 12:09) metoclopramide Allergy (Verified 02/13/17 12:09) Sulfa (Sulfonamide Antibiotics) Allergy (Verified 02/13/17 10:37) iv iron Allergy (Uncoded 04/24/17 16:10) Home Medications: Acetaminophen [Tylenol ES 500 mg (*)] 1,000 mg PO TID 02/13/17 [Last Taken Unknown] Allopurinol [Allopurinol 300 MG (RX)] 300 mg PO DAILY 02/13/17 [Last Taken Unknown] Anastrozole [Arimidex 1 mg (*)] 1 mg PO DAILY 02/13/17 [Last Taken Unknown] Aspirin [Aspirin 81mg (*)] 81 mg PO DAILY 02/13/17 [Last Taken Unknown] Atorvastatin Calcium [Lipitor 40 mg (*)] 40 mg PO HS 02/13/17 [Last Taken Unknown] Carvedilol [Coreg (*)] 3.125 mg PO BIDMEAL 02/13/17 [Last Taken Unknown] Clopidogrel Bisulfate [Plavix (*)] 75 mg PO DAILY 02/13/17 [Last Taken Unknown] Cyanocobalamin [Vitamin B12 (*)] 1,000 mcg PO DAILY 02/13/17 [Last Taken Unknown ] [place]/Supplements -Info Only 1 each PO DAILY 02/13/17 [Last Taken Unknown] Isosorbide Mononitrate [Imdur 30 mg (*)] 30 mg PO DAILY 02/13/17 [Last Taken Unknown] Levothyroxine [Synthroid 75 mcg (*)] 75 mcg PO DAILY06 02/13/17 [Last Taken Unknown] Lidocaine 5% [Lidoderm 5% Patch (*)] 1 each TD DAILY 02/13/17 [Last Taken Unknown] Lisinopril [Zestril 10 mg (*)] 10 mg PO DAILY 02/13/17 [Last Taken Unknown] Melatonin [Melatonin 3 MG (*)] 3 mg PO HS PRN 02/13/17 [Last Taken Unknown] Multivitamins [Multivitamin (*)] 1 each PO DAILY 02/13/17 [Last Taken Unknown] [place]-3 Fatty Acids [Fish Oil 1000 mg (*)] 1,000 mg PO DAILY 02/13/17 [Last Taken Unknown] Tamsulosin HCl [Flomax 0.4 MG (*)] 0.8 mg PO DAILY 02/13/17 [Last Taken Unknown] Venlafaxine Xr [Effexor Xr 75MG (*)] 75 mg PO DAILY 02/13/17 [Last Taken Unknown ] amLODIPine BESYLATE [Norvasc 10 mg (*)] 10 mg PO DAILY 02/13/17 [Last Taken Unknown] clonazePAM [Klonopin (*)] 0.5 mg PO DAILY PRN 02/13/17 [Last Taken Unknown] tiZANidine HCL [Zanaflex 2MG (*)] 2 mg PO Q8HRS PRN 02/13/17 [Last Taken Unknown ] traMADol [Ultram 50 mg (*)] 50 mg PO Q8HRS PRN 02/13/17 [Last Taken Unknown] I have personally reviewed and updated: medical history, social history - Social History Smoking Status: Never smoked Review of Systems ROS: 10pt was reviewed & negative except for what was stated in HPI & below Physical Exam Temp Pulse Resp BP Pulse Ox 36.4 C 67 20 79/53 L 92 04/24/17 18:06 04/24/17 18:06 04/24/17 18:06 04/24/17 18:33 04/24/17 18:06 Constitutional: no apparent distress Eyes: PERRL, EOMI Ears, Nose, Mouth, Throat: moist mucous membranes Cardiovascular: regular rate and rhythym Respiratory: no respiratory distress, clear to auscultation Gastrointestinal: normoactive bowel sounds, soft, non-tender abdomen Skin: warm Musculoskeletal: full muscle strength Neurologic: AAOx3 Psychiatric: interacting appropriately, not anxious, not encephalopathic Lab Data & Imaging Review 04/24/17 15:18 04/24/17 15:18 WBC 8.77 10^3/uL (3.80-9.50) 04/24/17 15:18 RBC 5.30 10^6/uL (4.18-5.33) 04/24/17 15:18 Hgb 16.5 g/dL (12.6-16.3) H 04/24/17 15:18 POC Hgb 19.0 gm/dL (12.6-16.3) H 04/24/17 15:14 Hct 50.6 % (38.0-47.0) H 04/24/17 15:18 POC Hct 56 % (38-47) H 04/24/17 15:14 MCV 95.5 fL (81.5-99.8) 04/24/17 15:18 MCH 31.1 pg (27.9-34.1) 04/24/17 15:18 MCHC 32.6 g/dL (32.4-36.7) 04/24/17 15:18 RDW 20.0 % (11.5-15.2) H 04/24/17 15:18 Plt Count 285 10^3/uL (150-400) 04/24/17 15:18 MPV 10.7 fL (8.7-11.7) 04/24/17 15:18 Neut % (Auto) Not Reported 04/24/17 15:18 Lymph % (Auto) Not Reported 04/24/17 15:18 [place] % (Auto) Not Reported 04/24/17 15:18 Eos % (Auto) Not Reported 04/24/17 15:18 Baso % (Auto) Not Reported 04/24/17 15:18 Nucleat RBC Rel Count 0.7 % (0.0-0.2) H 04/24/17 15:18 Absolute Neuts (auto) Not Reported 04/24/17 15:18 Absolute Lymphs (auto) Not Reported 04/24/17 15:18 Absolute Monos (auto) Not Reported 04/24/17 15:18 Absolute Eos (auto) Not Reported 04/24/17 15:18 Absolute Basos (auto) Not Reported 04/24/17 15:18 Absolute Nucleated RBC 0.06 10^3/uL (0-0.01) H 04/24/17 15:18 Immature Gran % Not Reported 04/24/17 15:18 Seg Neutrophils % 49 % 04/24/17 15:18 Band Neutrophils % 21 % 04/24/17 15:18 Lymphocytes % 26 % 04/24/17 15:18 Monocytes % 1 % 04/24/17 15:18 Metamyelocytes % 3 % 04/24/17 15:18 Immature Gran # Not Reported 04/24/17 15:18 Absolute Seg Neuts 4.30 10^/uL (1.70-6.50) 04/24/17 15:18 Absolute Band Neuts 1.84 10^3/uL (0.00-0.70) H 04/24/17 15:18 Absolute Lymphocytes 2.28 10^3/uL (1.00-3.00) 04/24/17 15:18 Absolute Monocytes 0.09 10^3/uL (0.30-0.80) L 04/24/17 15:18 Absolute Metamyelocyte 0.26 10^3/mL (0.00-0.00) H 04/24/17 15:18 RBC/WBC/PLT Morphology NORMAL (NORMAL) 04/24/17 15:18 Platelet Estimate ADEQUATE (ADEQ) 04/24/17 15:18 PT 12.4 SEC (12.0-15.0) 04/24/17 15:18 INR 0.93 (0.83-1.16) 04/24/17 15:18 APTT 20.0 SEC (23.0-38.0) L 04/24/17 15:18 POC Sodium 139 mEq/L (134-144) 04/24/17 15:14 Sodium 140 mEq/L (134-144) 04/24/17 15:18 POC Potassium 4.3 mEq/L (3.3-5.0) 04/24/17 15:14 Potassium 4.6 mEq/L (3.5-5.2) 04/24/17 15:18 POC Chloride 105 mEq/L (97-110) 04/24/17 15:14 Chloride 108 mEq/L (97-110) 04/24/17 15:18 Carbon Dioxide 18 mEq/l (22-31) L 04/24/17 15:18 Anion Gap 14 mEq/L (8-16) 04/24/17 15:18 POC BUN 24 mg/dL (7-23) H 04/24/17 15:14 BUN 21 mg/dL (7-23) 04/24/17 15:18 Creatinine 1.7 mg/dL (0.6-1.0) H 04/24/17 15:18 POC Creatinine 1.7 mg/dL (0.6-1.0) H 04/24/17 15:14 Estimated GFR 29 04/24/17 15:18 Glucose 114 mg/dL (70-100) H 04/24/17 15:18 POC Glucose 121 mg/dL (70-100) H 04/24/17 15:14 Calcium 10.1 mg/dL (8.5-10.4) 04/24/17 15:18 Troponin I < 0.012 ng/mL (0-0.034) 04/24/17 15:18 Assessment & Plan Assessment: #IV Infusion reaction vs allergic/anaphylactic reaction #Hypotension #Chronic HTN #Multiple Myeloma #CAD Plan: -Will determine clinical response to the IV bolus. I will provide additional IVF at 75ml/hr after the bolus. She does not appear toxic. She is alert and oriented and mentation is at baseline. Essentially she is not symptomatic. I do not suspect that the etiology of hypotension is something other than a reaction to the IV infusion. A TTE had a preserved LVEF. She has been afebrile. I have chosen not to give her additional Benadryl after reviewing UPTODATE and per their recommendations they suggest holding this as it can likely cause further hypotension and the the reaction is likely not allergic in nature. I will continue Solumedrol. -If she does not respond to the fluids or if BP worsens, she may need a higher lever of care and transfer to the stepdown unit. I discussed this with her nurse who is comfortable with the patient staying on the third floor. -Hold her meds today including ally anti-HTN. A complete list is not ready of yet and the med list has not been reconciled -SCD's -Full Code (confirmed)
[2017-04-24] MEDS ORDERED: MELATONIN 3 MG TAB PO PRN (20:40)
[2017-04-24] MEDS ORDERED: ATORVASTATIN CALCIUM 40 MG TAB PO SCH (21:00)
[2017-04-24] MEDS ORDERED: clonazePAM 0.5 MG TAB PO SCH (21:00)
[2017-04-24] MEDS: ACETAMINOPHEN 325 MG TAB PO PRN (22:03)
[2017-04-24] MEDS: methylPREDNISolone SOD SUCC 125 MG/2 ML VIAL IVP SCH (22:04)
[2017-04-25 05:25] LABS: % IMMATURE GRANULYOCYTES 1.4 % (0.0-1.1); ABSOLUTE IMMATURE GRANULOCYTES 0.27 10^3/uL (0.00-0.10); ADD DIFF? NO; ADD MORPH? NO; ADD SCAN? NO; ATYPICAL LYMPHOCYTE FLAG 0 (0-99); FRAGMENT RBC FLAG 20 (0-99); HEMATOCRIT 32.3 % (38.0-47.0); HEMOGLOBIN 10.5 g/dL (12.6-16.3); LEFT SHIFT FLG 70 (0-99); LIPEMIA HEMOLYSIS FLAG 80 (0-99); MEAN CELL HEMOGLOBIN 31.1 pg (27.9-34.1); MEAN CELL HEMOGLOBIN CONCENTR. 32.5 g/dL (32.4-36.7); MEAN CELL VOLUME 95.6 fL (81.5-99.8); MEAN PLATELET VOLUME 10.9 fL (8.7-11.7); PLATELET CLUMPS FLAG 0 (0-99); PLATELET COUNT 212 10^3/uL (150-400); RED BLOOD CELL COUNT 3.38 10^6/uL (4.18-5.33); RED CELL DISTRIBUTION WIDTH 19.1 % (11.5-15.2)
[2017-04-25] MEDS: methylPREDNISolone SOD SUCC 125 MG/2 ML VIAL IVP SCH ×2 (05:25→13:39)
[2017-04-25 05:49] LABS: ANION GAP 9 mEq/L (8-16); CALCIUM 8.7 mg/dL (8.5-10.4); CARBON DIOXIDE 16 mEq/l (22-31); CHLORIDE 112 mEq/L (97-110); GLOMERULAR FILTRATION RATE 24; GLUCOSE 177 mg/dL (70-100); POTASSIUM 5.4 mEq/L (3.5-5.2); SODIUM 137 mEq/L (134-144)
[2017-04-25] MEDS ORDERED: LEVOTHYROXINE 75 MCG TAB PO SCH (06:00)
[2017-04-25 08:24] VITALS: RESP 20
[2017-04-25] MEDS ORDERED: guaiFENesin 200 MG/10 ML UDL PO PRN (08:39)
[2017-04-25] MEDS ORDERED: ALLOPURINOL 300 MG TAB PO SCH (09:00)
[2017-04-25] MEDS ORDERED: OMEGA-3 FATTY ACIDS 1,000 MG CAP PO SCH (09:00)
[2017-04-25] MEDS ORDERED: CLOPIDOGREL BISULFATE 75 MG TAB PO SCH (09:00)
[2017-04-25] MEDS ORDERED: ASPIRIN 81 MG CHEWABLE TAB PO SCH (09:00)
[2017-04-25] MEDS ORDERED: ANASTROZOLE 1 MG TAB PO SCH (09:00)
[2017-04-25] MEDS ORDERED: MULTIVITAMINS 1 EACH TAB PO SCH (09:00)
--- NOTE | 2017-04-25 09:48 | GCON ---
[f rep st] CONSULTATION HEMATOLOGY CONSULTATION. DATE OF CONSULTATION: 04/25/2017 REFERRING PHYSICIAN: Derek Brush MD REASON FOR CONSULTATION: Anaphylactic reaction to intravenous iron. HISTORY OF PRESENT ILLNESS: Yesenia Mark is a 76-year-old woman with a history of multiple myeloma in remission. She also has iron deficiency anemia of unclear etiology. Yesterday, in my clinic she was given her 1st dose of intravenous iron. About a quarter of the way through the infusion, she d eveloped a severe anaphylactic reaction with hypotension and difficulty breathing. She was given So erica-Medrol and additional Benadryl and taken to the emergency department where she was given epinephr ine, as well as IV fluids. Her condition improved. An echocardiogram was normal. Troponin was neg ative. Her respiratory condition rapidly stabilized as did her hemodynamics. She was admitted over night for observation. This morning she feels back to baseline. White count is 18.8, hemoglobin 10 .5, platelets of 212. PAST MEDICAL HISTORY: 1. Iron deficiency anemia of unclear etiology. 2. History of multiple myeloma in remission. 3. Coronary artery disease. 4. Chronic low back pain. 5. History of stage I breast cancer in 2012, for which she takes Arimidex. CURRENT MEDICATIONS: Include: Allopurinol, Arimidex, aspirin, Lipitor, Klonopin, Plavix, Synthroid . ALLERGIES: Intravenous iron, codeine and Reglan. FAMILY HISTORY: Noncontributory. SOCIAL HISTORY: She is nonsmoker, nondrinker. She lives with her daughter, Kamlesh. REVIEW OF SYSTEMS: Pertinent positives as noted in the HPI. A 14-point review of systems was negat [facility]. PHYSICAL EXAMINATION: VITAL SIGNS: Her temperature was 36.4, blood pressure 117/80, heart rate 75, oxygen saturation 91% on 2 L. GENERAL: She is an elderly woman, breathing comfortably, in no acut e distress. HEENT: Sclerae anicteric. Oropharynx is clear. NECK: Supple. No lymphadenopathy. LUNGS: Clear to auscultation bilaterally. CARDIAC EXAMINATION: Regular rate and rhythm. No murmu rs, gallops, rubs. ABDOMEN: Normoactive bowel sounds. Nontender. EXTREMITIES: Without edema. IMPRESSION: This is a 76-year-old woman with anaphylactic reaction to intravenous iron. She has re covered from this completely and is now hemodynamically stable. I think she can be discharged to ho me safely. She will not receive any further IV iron of any sort given the severity of the reaction. We will attempt to replete her iron stores orally with supplements or dietary sources of iron. He r myeloma continues to remain in remission, as far as I can tell, and that does not require any furt her intervention either. After discharge, she should come and see me in several weeks as previously scheduled. /[id number]/MODL
[2017-04-25 11:15] VITALS: BP 127/61; PULSE 85; TEMP 98.6
[2017-04-25] MEDS: ACETAMINOPHEN 325 MG TAB PO PRN (11:34)
[2017-04-25] MEDS ORDERED: CITALOPRAM 20 MG TAB PO SCH (13:00)
[2017-04-25 13:40] LABS: ANION GAP 10 mEq/L (8-16); CALCIUM 8.9 mg/dL (8.5-10.4); CARBON DIOXIDE 17 mEq/l (22-31); CHLORIDE 111 mEq/L (97-110); CREATININE 1.9 mg/dL (0.6-1.0); GLOMERULAR FILTRATION RATE 26; GLUCOSE 230 mg/dL (70-100); POTASSIUM 4.9 mEq/L (3.5-5.2); SODIUM 138 mEq/L (134-144)
[2017-04-25 13:44] VITALS: O2SAT 92
--- NOTE | 2017-04-25 14:24 | GDS ---
[f rep st] DISCHARGE SUMMARY DISCHARGE DIAGNOSES: 1. Anaphylactic reaction to iron. 2. Hypotension. 3. Chronic hypertension. 4. Multiple myeloma. 5. Coronary artery disease. 6. Acute on chronic kidney disease. 7. Iron-deficiency anemia. 8. Stage I breast cancer in 2012. 9. Hypothyroidism. 10. Depression. HISTORY OF PRESENT ILLNESS: Patient is a 76-year-old female, history of multiple myeloma, in remission; iron deficiency anemia of unclear etiology, coronary artery disease, and stage I breast cancer in 2012, who received the first dose of IV iron in [facility]. A fourth of the way through the infusion, she developed a severe anaphylactic reaction with hypotension and difficulty breathing. She was dosed Solu-Medrol, Benadryl, and taken to the ER and dosed epinephrine. She had a negative echocardiogram and troponin. She has been hemodynamically stable overnight. This morning, she has no complaints. Denies chest pain, shortness of breath, dizziness, or lightheadedness. HOSPITAL COURSE BY PROBLEM: 1. Severe anaphylactic reaction to iron: The patient was treated with Solu- Medrol and epinephrine in the emergency room. She has remained hemodynamically stable. She will no longer receive any iron infusions, and this was added to her allergy list. 2. CAD: Continue medications, including aspirin, statin, Plavix. 3. Hypertension: Hold losartan with MICHELLE. Repeat basic metabolic panel on Friday. 4. Hypothyroidism: Continue Synthroid. 5. Acute on chronic kidney disease: Suspect this is secondary to hypotension. Baseline creatinine in our records is 1.4-1.5, elevated at 1.9. Will hold losartan over the weekend, have repeat lab on Friday. 6. Gout: Will hold allopurinol until repeat lab. 7. Iron-deficiency anemia: Patient seen by Dr. Grace. Will replete stores orally. No further IV iron infusions. 8. History of breast cancer: Continue Arimidex. DISPOSITION: Patient is stable for discharge. MEDICATIONS: New medications: None. Hold losartan and allopurinol until repeat BMP on Friday. /[id number]/MODL MTDD
== END 2017-04-25 16:20 | disposition home or self-care (01) ==
LOC: EDUNIT# → F3E 17:53
PROVIDERS: ADMIT Family Medicine; ATTEND Family Medicine
DX: D50.9 Iron deficiency anemia, unspecified (principal); T45.4X5A Adverse effect of iron and its compounds, initial encounter; C90.01 Multiple myeloma in remission; I95.9 Hypotension, unspecified; I25.10 Atherosclerotic heart disease of native coronary artery without angina pectoris; I12.9 Hypertensive chronic kidney disease with stage 1 through stage 4 chronic kidney disease, or unspecified chronic kidney disease; N17.9 Acute kidney failure, unspecified; Z85.3 Personal history of malignant neoplasm of breast
CPT/HCPCS: 70450; 71010; 93005; 93306; 96361; 96372; 96374; 96375; 99291; G0378; J0171; J1200; J2370; J2405; 82947-QW